=== PATIENT | female | born 1960 | race Caucasian/White ===

== ENCOUNTER 2020-08-22 11:24 | Emergency (ER) | payer OTHER ==
[~2020-08-22 11:24] MED LIST: ASPIRIN CHEWABL81 MG PO; AZITHROMYCIN250 MG PO; BRILINTA90 MG PO; BRIN10TA PO; IMDUR 30MG TABL30 MG PO; LOPRESSOR25 MG PO; MS CONTIN30 MG PO; NEURONTIN300 MG PO; NORCO 5-325 TA1 EACH PO; PRILOSEC20 MG PO; PROZAC40 MG PO; RANEXA500 MG PO; TOPROL XL 50 MG50 MG PO; XANAX0.5 MG PO; XARELTO20 MG PO; ZOCOR40 MG PO
[2020-08-22 13:06] LABS: BASOPHIL 0.7 % (0-2); EOSINOPHIL 2.5 % (0-5); HCT 44.7 % (37.0-47.0); HGB 14.8 g/dl (12.5-16.0); LYMPHOCYTE 26.4 % (15-48); MCH 30.3 pg (25.0-31.0); MCHC 33.1 g/dL (32.0-36.0); MCV 91.4 fL (78.0-100.0); MPV 8.9 fL (6.0-9.5); NEUTROPHIL 64.2 % (41-80); NRBC 0; PLT 324 K/uL (150-400); RBC 4.89 M/uL (4.20-5.40); RDW 12.7 % (11.5-14.0); WBC 8.1 K/uL (4.0-10.5)
[2020-08-22 13:13] LABS: BILIRUBIN NEGATIVE (NEGATIVE); BLOOD NEGATIVE Ery/uL (NEGATIVE); CLARITY CLEAR (CLEAR); COLOR YELLOW (YELLOW); GLUCOSE (U) NORMAL (NORMAL); LEUKOCYTES NEGATIVE Leu/uL (NEGATIVE); NITRITE NEGATIVE (NEGATIVE); PROTEIN NEGATIVE (NEGATIVE); SPECIFIC GRAVITY >=1.030 (1.001-1.030); UROBILINOGEN 0.2 mg/dL (0.2-1.0); pH 5.5 (5.0-9.0)
[2020-08-22 13:38] LABS: ALBUMIN 3.8 g/dL (3.4-5.0); BILIRUBIN - TOTAL 0.4 mg/dL (0.2-1.0); BUN/CREAT RATIO (CALC) 17.8 RATIO; C-REACTIVE PROTEIN 0.3 mg/dL (<=0.90); CREATININE 0.73 mg/dL (0.51-0.95); GLOBULIN (CALCULATION) 3.6 g/dL; MAGNESIUM 1.9 mg/dL (1.8-2.4); POTASSIUM 4.4 mmol/L (3.5-5.1); TOTAL PROTEIN 7.4 g/dL (6.4-8.2)
[2020-08-22] MEDS ORDERED: ZOFRAN4 M1 PO (15:45)
== END 2020-08-22 16:12 | disposition home or self-care (01) ==
LOC: FER 11:24
PROVIDERS: Emergency Medicine
DX: B34.9 Viral infection, unspecified (principal); N20.0 Calculus of kidney; K22.8 Other specified diseases of esophagus; I10 Essential (primary) hypertension; F32.9 Major depressive disorder, single episode, unspecified; E78.5 Hyperlipidemia, unspecified; M54.9 Dorsalgia, unspecified; G89.29 Other chronic pain; Z87.891 Personal history of nicotine dependence; Z98.890 Other specified postprocedural states; Z90.49 Acquired absence of other specified parts of digestive tract; Z79.891 Long term (current) use of opiate analgesic; Z79.899 Other long term (current) drug therapy; Z95.5 Presence of coronary angioplasty implant and graft
CPT/HCPCS: 36415; 80053; 81003; 82728; 83615; 83690; 83735; 84145; 85025; 86140; J1100; J2405; J7030; Q9967

== ENCOUNTER 2021-09-29 02:52 | Emergency (ER) | payer OTHER ==
[~2021-09-29 02:52] MED LIST changes: +AMLODIPINE BESYL5 MG PO; +NITROQUIK SL0.4 MG SL; +REPATHA SY140 MG/1 M SC; +ZOFRAN4 M1 PO
[2021-09-29 04:00] LABS: BASOPHIL 0.8 % (0-2); EOSINOPHIL 5.2 % (0-5); HCT 43.2 % (37.0-47.0); HGB 13.9 g/dl (12.5-16.0); MCH 29.8 pg (25.0-31.0); MCHC 32.2 g/dL (32.0-36.0); MCV 92.5 fL (78.0-100.0); MONOCYTE 8.2 % (0-12); MPV 8.9 fL (6.0-9.5); NEUTROPHIL 66.4 % (41-80); NRBC 0; PLT 269 K/uL (150-400); RBC 4.67 M/uL (4.20-5.40); RDW 12.6 % (11.5-14.0); WBC 9.7 K/uL (4.0-10.5)
[2021-09-29 04:08] LABS: CORONAVIRUS 2019 SARS-COV-2 NEGATIVE (NEGATIVE); INFLUENZA A NAA NEGATIVE (NEGATIVE)
[2021-09-29 04:22] LABS: ALBUMIN 3.7 g/dL (3.4-5.0); BILIRUBIN - TOTAL 0.3 mg/dL (0.2-1.0); BUN/CREAT RATIO (CALC) 15.9 RATIO; C-REACTIVE PROTEIN 6.4 mg/dL (<=0.90); CREATININE 0.69 mg/dL (0.51-0.95); GLOBULIN (CALCULATION) 3.8 g/dL; POTASSIUM 3.5 mmol/L (3.5-5.1); TOTAL PROTEIN 7.5 g/dL (6.4-8.2)
[2021-09-29] MEDS ORDERED: ZPAK PO (06:23)
[2021-09-29] MEDS ORDERED: MEDROL 4MG DOSEP4 MG PO (06:23)
== END 2021-09-29 07:35 | disposition home or self-care (01) ==
LOC: FER 02:52
PROVIDERS: Emergency Medicine
DX: R50.9 Fever, unspecified (principal); I25.2 Old myocardial infarction; I10 Essential (primary) hypertension; Z86.718 Personal history of other venous thrombosis and embolism; Z95.5 Presence of coronary angioplasty implant and graft; Z20.822 Contact with and (suspected) exposure to COVID-19
CPT/HCPCS: 36415; 71275; 80053; 84145; 84484; 85025; 85379; 86140; 87880; J7030; Q9967; U0002

== ENCOUNTER → 2022-02-03 | Day surgery (SDC) | payer OTHER ==
[~2022-02-03] VITALS: Ht 157.5 cm; Wt 105.2 kg
[~2022-02-03] MED LIST changes: +MEDROL 4MG DOSEP4 MG PO; +ZPAK PO
[2022-02-03 12:39] LABS: HCT 41.2 % (37.0-47.0); HGB 13.6 g/dl (12.5-16.0); MCH 30.2 pg (25.0-31.0); MCV 91.4 fL (78.0-100.0); MPV 9.1 fL (6.0-9.5); RBC 4.51 M/uL (4.20-5.40); RDW 12.8 % (11.5-14.0); WBC 5.9 K/uL (4.0-10.5)
[2022-02-03 13:02] LABS: ALBUMIN 3.7 g/dL (3.4-5.0); BILIRUBIN - TOTAL 0.4 mg/dL (0.2-1.0); CREATININE 0.63 mg/dL (0.51-0.95); GLOBULIN (CALCULATION) 3.2 g/dL; POTASSIUM 3.9 mmol/L (3.5-5.1); TOTAL PROTEIN 6.9 g/dL (6.4-8.2)
== END | disposition home or self-care (01) ==
LOC: FAS 10:31
PROVIDERS: Orthopaedic Surgery
DX: G56.03 Carpal tunnel syndrome, bilateral upper limbs (principal); M65.841 Other synovitis and tenosynovitis, right hand
CPT/HCPCS: 36415; 80053; J1100; J1170; J2250; J2405; J2704; J3010; J7120